=== PATIENT | female | born 1985 | race Caucasian/White ===

== ENCOUNTER 2023-03-09 05:20 | Inpatient (IN) ==
[2023-03-09] MEDS ORDERED: Gentamicin ADULT 275 MG in NS 0.9% 100 ml BAG 100 ML IVPB ONE (06:00)
[2023-03-09] MEDS ORDERED: Sodium Citrate/Citric Acid LIQ 15 ML UDC PO ONE (06:00)
[2023-03-09] MEDS ORDERED: Clindamycin 900 MG/D5W BAG IVPB ONE (06:00)
[2023-03-09 06:41] LABS: ABS Eosinophils 0.2 10^3/uL (0.0-0.5); ABS Lymphocytes 1.4 10^3/uL (1.0-4.8); ABS Monocytes 1.2 10^3/uL (0.0-0.9); ABS Neutrophils 12.4 10^3/uL (1.5-7.6); ABS Nucleated RBC 0.02 10^3/ul; Eosinophil % 1.3 %; Hematocrit 35.4 % (35-45); Hemoglobin 12.1 g/dL (11.5-14.3); Lymphocyte % 9.1 %; Mean Corpuscular Hgb Conc 34.1 g/dL (31-36); Mean Platelet Volume 8.7 fL (7.5-11.2); Nucleated Red Blood Cells % 0.1 /100 WBC (0.0-0.4); Platelet Count 252 10^3/uL (150-450); Red Blood Count 4.02 10^6/uL (3.63-4.92); Red Cell Distribution Width 14.6 % (12-17); White Blood Count 15.3 10^3/uL (3.8-11.8)
[2023-03-09] MEDS ORDERED: Succinylcholine 200 mg VIAL 20 mg/ml 10 ml VIAL (200 mg) ONE (07:05)
[2023-03-09 07:10] LABS: Albumin 3.4 g/dL (3.2-5.2); Creatinine, Serum 0.61 mg/dL (0.51-0.95); Globulin 3.3 g/dL (2-4); Potassium 3.7 mmol/L (3.5-5.0); Total Bilirubin 0.3 mg/dL (0.2-1.0); Total Protein 6.7 g/dL (6.4-8.9); eGFR CKD-EPI 118.8 (>60)
[2023-03-09] MEDS ORDERED: fentaNYL 100 mcg/2 ml 50 MCG/ML VIAL ONE (07:27)
[2023-03-09] MEDS ORDERED: Phenylephrine 40 mcg/mL 10mL (400mcg) SYRINGE ONE (07:29)
[2023-03-09] MEDS ORDERED: Morphine PF AMP (0.5MG/ML) 5 MG/10 ML AMP ONE (07:29)
[2023-03-09] MEDS ORDERED: Oxytocin 10 UNITS/ML 1 ML VIAL ONE ×2 (07:56→09:18)
[2023-03-09] MEDS ORDERED: Ondansetron 4 mg VIAL 2 MG/ML 2 ml VIAL ONE (07:56)
[2023-03-09] MEDS ORDERED: Dexamethasone IV 4 MG/ML VIAL 1 ml VIAL ONE (08:59)
[2023-03-09] MEDS ORDERED: Naloxone 0.4 mg VIAL 0.4 mg/ml 1 ml VIAL IV PRN (09:04)
[2023-03-09] MEDS ORDERED: Acetaminophen IV 1 GM/100ML 1,000 MG/100 ML BAG IV PRN (09:05)
[2023-03-09] MEDS ORDERED: Ondansetron 4 mg VIAL 2 MG/ML 2 ml VIAL IV PRN (09:05)
[2023-03-09] MEDS ORDERED: Metoclopramide 5 MG/ML VIAL (10 mg) IV PRN (09:05)
[2023-03-09] MEDS ORDERED: Naloxone 0.4 mg VIAL 0.4 mg/ml 1 ml VIAL IV PUSH PRN (09:05)
[2023-03-09] MEDS ORDERED: Acetaminophen IV 1 GM/100ML 1,000 MG/100 ML BAG IV ONE (09:26)
[2023-03-09] MEDS ORDERED: Measles, Mumps,Rubella VACC 0.5 ML/VIAL SUBCUT ONE (10:17)
[2023-03-09] MEDS ORDERED: Witch Hazel PAD JAR TOPICAL PRN (10:17)
[2023-03-09] MEDS ORDERED: Glycerin ADULT 2.4 gm SUPP PR PRN (10:17)
[2023-03-09] MEDS ORDERED: Oxytocin in LR 20,000 MILLI.UNIT/1,000 ML BAG IV SCH (10:20)
[2023-03-09] MEDS ORDERED: Lactated Ringers 1000 ml BAG 1,000 ML IV SCH (11:00)
[2023-03-10 08:29] LABS: ABS Basophils 0.1 10^3/uL (0.0-0.1); ABS Eosinophils 0.1 10^3/uL (0.0-0.5); ABS Lymphocytes 1.3 10^3/uL (1.0-4.8); ABS Monocytes 1.1 10^3/uL (0.0-0.9); ABS Neutrophils 10.6 10^3/uL (1.5-7.6); Eosinophil % 1.1 %; Hematocrit 28.7 % (35-45); Hemoglobin 9.9 g/dL (11.5-14.3); Lymphocyte % 9.6 %; Mean Corpuscular Hemoglobin 30.5 pg (27-33); Mean Corpuscular Hgb Conc 34.6 g/dL (31-36); Mean Corpuscular Volume 88.2 fL (80-97); Mean Platelet Volume 8.2 fL (7.5-11.2); Platelet Count 195 10^3/uL (150-450); Red Blood Count 3.25 10^6/uL (3.63-4.92); Red Cell Distribution Width 14.7 % (12-17); White Blood Count 13.1 10^3/uL (3.8-11.8)
[2023-03-10] MEDS ORDERED: Measles, Mumps,Rubella VACC 0.5 ML/VIAL SUBCUT ONE (09:00)
[2023-03-10 15:24] LABS: Varicella IgG Antibody Index 2.3; Varicella-Zoster IgG Antibody Positive
[2023-03-10] MEDS ORDERED: Ondansetron ODT 4 mg TAB 4 MG TAB SL PRN (23:31)
[2023-03-11 08:19] VITALS: BP 134/80
== END 2023-03-11 14:20 | disposition home or self-care (01) | DRG 540 ==
LOC: MCHOB 05:20
PROVIDERS: ADMIT Obstetrics & Gynecology; ATTEND Obstetrics & Gynecology